=== PATIENT | male | born 1940 ===

== ENCOUNTER → 2018-02-12 | Outpatient (CLI) | payer OTHER | END | disposition home or self-care (01) | LOC: NUCLEAR 09:00 | DX: C61 Malignant neoplasm of prostate (principal); C79.51 Secondary malignant neoplasm of bone | CPT/HCPCS: 78306; A9503 ==

== ENCOUNTER 2018-07-16 14:20 | Outpatient (CLI) | payer OTHER | END 2018-07-16 17:00 | disposition home or self-care (01) | LOC: RAD 14:20 | DX: I15.8 Other secondary hypertension (principal); I10 Essential (primary) hypertension ==